=== PATIENT | male | born 1995 | race Caucasian/White ===

== ENCOUNTER → 2021-01-10 09:49 | Outpatient (REF) | payer OTHER, SELFPAY | LOC: ANHLAB 09:49 | PROVIDERS: PCP Family Medicine; Visit Provider Nurse Practitioner | DX: D22.61 Melanocytic nevi of right upper limb, including shoulder (principal); D22.4 Melanocytic nevi of scalp and neck | CPT/HCPCS: 88305 ==

== ENCOUNTER 2024-10-16 01:01 | Day surgery (SDC) | payer OTHER, SELFPAY ==
[2024-10-07 15:34] VITALS: BMI 27.5
--- OUTSIDE RECORDS SUMMARY | 2024-10-16 01:04 | XMS_ITS | Clinical Summary ---
Author Organization [email or web address] Address [address] [place] [address] Care Team Providers Care Porcelain Enameler Name Role Phone David Bethea MD Primary Care Provider [phone] Source Comments [email or web address],non-owned Affiliates and Associated Physician Practices is amultiple site organization consisting of ambulatory clinics and hospital sitesin [place], [place], [place] and [place]. This disclosure is being madepursuant to the Care Everywhere program and may not contain all information available regarding this patient. Last updated 18.[email or web address] Allergies No known active allergies Medications Be aware that medications may not be up to date on this document. Always verify current medications with the patient. 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 Pulse 87 05/31/2017 4:05 PM BLIND INSTALLER Temperature 37.2 C (99 F) 05/31/2017 4:05 PM BLIND INSTALLER Respiratory Rate - - Oxygen Saturation - - Inhaled Oxygen Concentration - - Weight 97.5 kg (215 lb) 05/31/2017 4:05 PM BLIND INSTALLER Height 190.5 cm (6' 3 ) 05/31/2017 4:05 PM BLIND INSTALLER Body Mass Index 26.87 05/31/2017 4:05 PM BLIND INSTALLER Plan of Treatment Health Maintenance Due Date Last Done Comments HIV SCREENING 2012 HEPATITIS C SCREENING 08/21/2015 DTAP/TDAP/TD VACCINES (1 - Tdap) 2016 HEPATITIS B VACCINE (1 of 3 - 19+ 3-dose series) 2016 COVID-19 VACCINE (2023-2 5 season) 2024 DEPRESSION SCREENING 07/08/2024 INFLUENZA VACCINE (Season Ended) 2025 ZOSTER VACCINE (1 of 2) 2047 HIB VACCINE Aged Out No longer eligi ble based on patient's age to complete this topic HPV VACCINE Aged Out No longer eligi ble based on patient's age to complete this topic MENINGOCOCCAL (Group B) VACC INE SHARED DECISION-MAKING Aged Out No longer eligibl e based on patient's age to complete this topic MENINGOCOCCAL GROUPS A/C/Y/W VACCINE Aged Out No longer eligible b ased on patient's age to complete this topic PNEUMOCOCCAL VACCINE Aged Out No long er eligible based on patient's age to complete this topic Care Teams Porcelain Enameler Relationship Specialty Start Date End Date David Bethea MD [address] [place] [address] PCP - General Pediatrics 05/31/17
--- OUTSIDE RECORDS SUMMARY | 2024-10-16 01:04 | XMS_ITS | Clinical Summary ---
Author Organization [facility] Address [address] [place] [address] Phone Care Team Providers Care Bottle Packing Machine Cleaner Name Role Phone Provider, None Primary Care Provider Unavailabl e Allergies No known active allergies Medications No known medications Social History Tobacco Use Types Packs/Day Years Used Date Smoking Tobacco: Never Smokeless Tobacco: Never Sex and Gender Information Value Date Recorded Sex Assigned at Not on file Legal Sex Male 11:23 PM CDT Gender Identity Not on file Sexual Orientation Not on file Last Filed Vital Signs Vital Sign Reading Time Taken Comments Blood Pressure 110/68 06/01/2020 2:19 PM ACUTE DIALYSIS REGISTERED NURSE Pulse 100 06/01/2020 2:19 PM ACUTE DIALYSIS REGISTERED NURSE Temperature 36.5 C (97.7 F) 06/01/2020 2:19 PM ACUTE DIALYSIS REGISTERED NURSE Respiratory Rate - - Oxygen Saturation 98% 06/01/2020 2:19 PM ACUTE DIALYSIS REGISTERED NURSE Inhaled Oxygen Concentration - - Weight - - Height - - Body Mass Index - - Plan of Treatment Health Maintenance Due Date Last Done Comments Hepatitis C Virus (HCV) Screening 1997 TdaP Immunization 1997 Hepatitis B Immunization (1 of 3 - 19+ 3-dose series) 2016 Influenza Immunization (#1) 2024 SARS-COV-2 Immunization (2023- season) 2024 03/22/2021, 03/01/2021 Respiratory Syncytial Virus (RSV) Immunization (Adult) (1 - 1-dose 75+ series) 2072 Meningococcal Immunization (ACWY) Aged Out No longer eligible b ased on patient's age to complete this topic Pneumococcal Immunization Combined Aged Out No longer eligible b ased on patient's age to complete this topic Rotavirus Immunization Aged Out No lo nger eligible based on patient's age to complete this topic Care Teams Bottle Packing Machine Cleaner Relationship Specialty Start Date End Date Provider, None [facility] PCP - General 06/01/20
[2024-10-16 10:33] VITALS: BP 135/84; PULSE 81; RESP 18; TEMP 36.4; O2SAT 100
--- NOTE | 2024-10-16 10:37 | P.PNAN_ITS ---
Anes - Initial Pre Proc Eval Procedure: Operation Date: 10/16/24 11:45 Proposed Procedures p Esophagogastroduodenoscopy - Renzo Flaherty MD Date/Time: 10/16/24 10:37 Surgeon: Renzo Flaherty MD Pre Op Diagnosis: Abdominal distension (gaseous), Early satiety Patient Data Age: 29 Gender: M Height: 1.91 m Weight: 101.8 kg Last Vital Signs Temp 97.5 F L 10/16/24 10:33 Pulse 81 10/16/24 10:33 Resp 18 10/16/24 10:33 BP 135/84 10/16/24 10:33 Pulse Ox 100 10/16/24 10:33 O2 Del Method Room Air 10/16/24 10:33 Allergies Allergy/AdvReac Type Severity Reaction Status Date / Time No Known Allergies Allergy Verified 10/16/24 10:32 Home Medications ?Medication ?Instructions ?Recorded ?Confirmed ?Type No Home Medications 09/10/24 10/16/24 History Patient hx anesthesia problems: none Family hx anesthesia problems: none Results Review: All pre-operative results and documents have been reviewed as part of the pre- operative evaluation. [facility] Past Medical History Medical History Stress Penile pain Hyperhidrosis of axilla Surgical History Surgical History History of shoulder surgery LT shoulder labral repair Family History Family History Other Breast cancer Diabetes mellitus Hypertension Social History Social History Social History: Smoking status: Never smoker Second hand tobacco smoke exposure: No Alcohol intake: current Drinks per week: 7 Alcohol use details: Occasionally Substance use: never Substance use type: marijuana Other substance usage details: gummies, smoking Lack of Transportation: No Lack of Food: Never True Current Housing: I Have Housing Concerned About Future Housing: No Difficulty Paying Gas/Electric Bills: No Difficulty Paying for Meds: No Currently Unemployed: No Education: Decline to Answer Difficulty w/ Childcare or Family Care: No Living arrangements: with family Occupation/Education: occupation Gender identity (if verbalized by the patient): Male Sexual Orientation (if Verbalized by the Patient): Straight or Heterosexual Spiritual care concerns: No Anes - Eval Final PreProcedure Day of Procedure 10/16/24 10:37 Patient weight: normal Heart: regular rate and rhythm Lungs: clear to auscultation Airway: Mallampati scale class II Neurological: alert and oriented Last oral intake: >/= 8 hours ASA classification: II Emergent: no Anesthetic plan: proceed Anesthesia type and monitoring: general GIVS and standard monitoring Results Review: All pre-operative results and documents have been reviewed as part of the pre- operative evaluation. Informed Consent: The patient's anesthetic plan and its attendant risks and benefits were discussed with the patient/family/POA. Questions were solicited and answers provided to the satisfaction of the patient/family/POA.
[2024-10-16] MEDS: LACTATED RINGERS 1,000 ML 150 ML IV CONT (10:46)
--- NOTE | 2024-10-16 11:07 | PM.HPGS ---
History of Present Illness History of Present Illness Consent: Risks, benefits, and alternatives have been discussed and questions answered. Patient agrees to proceed with procedure. Chief complaint: Abdominal distension (gaseous), Early satiety Narrative: Sergio Toledo is a 29 year old male here for first egd, h/o bloating and discomfort sometimes after drinking alcohol and eating, he is not taking meds for that Review of Systems Review of Systems: All systems reviewed & are unremarkable except as noted in HPI and below PMFSH Past Medical History Medical History (Updated 10/16/24 @ 11:08 by Renzo Flaherty MD) Bloating Stress Penile pain Hyperhidrosis of axilla Surgical History Surgical History History of shoulder surgery LT shoulder labral repair Family History Family History Other Breast cancer Diabetes mellitus Hypertension Social History Social History Social History: Smoking status: Never smoker Second hand tobacco smoke exposure: No Alcohol intake: current Drinks per week: 7 Alcohol use details: Occasionally Substance use: never Substance use type: marijuana Other substance usage details: gummies, smoking Lack of Transportation: No Lack of Food: Never True Current Housing: I Have Housing Concerned About Future Housing: No Difficulty Paying Gas/Electric Bills: No Difficulty Paying for Meds: No Currently Unemployed: No Education: Decline to Answer Difficulty w/ Childcare or Family Care: No Living arrangements: with family Occupation/Education: occupation Gender identity (if verbalized by the patient): Male Sexual Orientation (if Verbalized by the Patient): Straight or Heterosexual Spiritual care concerns: No Meds Home Medications and Allergies Home Medications ?Medication ?Instructions ?Recorded ?Confirmed ?Type No Home Medications 09/10/24 10/16/24 History Allergies Allergy/AdvReac Type Severity Reaction Status Date / Time No Known Allergies Allergy Verified 10/16/24 10:32 Vital Signs Vital Signs - 24 hr 10/16/24 10:33 Temperature 97.5 F L Pulse Rate 81 Respiratory Rate 18 Blood Pressure 135/84 Pulse Oximetry 100 Oxygen Delivery Room Air Exam Const: General: comfortable and no acute distress HENMT: Face/Nose/Sinus: Normal nares present Eyes: General: appearance normal, both eyes and all related structures Neck: Neck: no JVD Resp: Auscultation: clear to auscultation bilaterally Cardio: Rate: regular rate Rhythm: regular rhythm GI: Inspection: non-distended GI Palp: Yes Soft to palpation Skin: General skin exam: normal color Neuro: General: gait normal Speech: normal speech Extrem: General: normal to inspection Psych: Mental Status: mental status grossly normal Assessment and Plan Assessment and plan (1) Bloating: Code(s): R14.0 - Abdominal distension (gaseous) Status: Acute Assessment and Plan: egd with bx
[2024-10-16 11:13] VITALS: BP 108/66; PULSE 64; RESP 18; O2SAT 98
[2024-10-16 11:23] VITALS: BP 107/58; PULSE 60; RESP 18; O2SAT 98
[2024-10-16 11:30] VITALS: BP 107/61; PULSE 60; RESP 18; O2SAT 99
== END 2024-10-16 11:38 | disposition home or self-care (01) ==
PROVIDERS: PCP Family Medicine; Referring Provider Physician Assistant Medical; Visit Provider Internal Medicine Gastroenterology
PROC: 0DJ08ZZ Inspection of Upper Intestinal Tract, Via Natural or Artificial Opening Endoscopic (ICD-10-PCS; CPT 43239; principal; 2024-10-16 11:45)
DX: K29.50 Unspecified chronic gastritis without bleeding (principal); F12.90 Cannabis use, unspecified, uncomplicated
CPT/HCPCS: 43239; 88305; J2704; J7120